=== PATIENT | female | born 1965 | race Caucasian/White ===

== ENCOUNTER → 2016-10-03 | Outpatient (CLI) | payer OTHER ==
[~2016-10-03] MED LIST: ALBUAER19 INH; BUPRTAB51 PO; FLUT0.15 NAE; PANT40TA PO
[2016-10-03 14:50] LABS: URINE APPEARANCE CLEAR (CLEAR); URINE BILIRUBIN NEG (NEG); URINE COLOR YELLOW; URINE NITRITE NEG (NEG); URINE SPECIFIC GRAVITY 1.011 (1.000-1.030); UROBILINOGEN NEG (NEG)
[2016-10-03 14:59] LABS: REVIEW REQ? NO
[2016-10-03 15:00] LABS: MANUAL MICROSCOPIC REQUIRED? NO
== END | disposition home or self-care (01) ==
LOC: C.RAD1850 13:03
PROVIDERS: ATTEND Obstetrics & Gynecology
DX: R39.9 Unspecified symptoms and signs involving the genitourinary system (principal)

== ENCOUNTER → 2016-12-08 | Outpatient (CLI) | payer OTHER | END | disposition home or self-care (01) | LOC: C.LAB1850 14:58 | PROVIDERS: ATTEND Psychiatry & Neurology Psychiatry | DX: F33.2 Major depressive disorder, recurrent severe without psychotic features (principal) ==

== ENCOUNTER → 2016-12-25 | Outpatient (CLI) | payer OTHER ==
[2016-12-25 14:53] LABS: MEAN CELL VOLUME 93.2 fL (80-100); MEAN CORPUSCULAR HEMOGLOBIN 31.8 pg (25-34); MEAN CORPUSCULAR HGB CONC 34.1 g/dl (32-36); MEAN PLATELET VOLUME 9.4 fL (7.4-10.4); PLATELET COUNT 276 K/uL (130-400); WHITE BLOOD COUNT 7.78 K/uL (4.8-10.8)
== END | disposition home or self-care (01) ==
LOC: C.LAB1850 13:35
PROVIDERS: ATTEND Obstetrics & Gynecology
DX: N92.0 Excessive and frequent menstruation with regular cycle (principal)

== ENCOUNTER → 2017-04-24 | Outpatient (CLI) | payer OTHER ==
--- NOTE | 2017-04-24 09:54 | DIAGNOSTIC IMAGING REPORT ---
BILIARY ULTRASOUND CLINICAL HISTORY: GALLBLADDER POLYP COMPARISON STUDY: 04/23/2015 FINDINGS: The pancreas appears sonographically normal. The liver appears sonographically normal. There is no ductal dilatation. The common bile duct measures 3 mm. There is no right-sided hydronephrosis. The gallbladder appears sonographically normal. IMPRESSION: Normal biliary ultrasound. No gallbladder polyps are delineated. Electronically signed by: Cornelio Hawthorne M.D. 04/24/2017 9:52 AM Dictated Date/Time: 04/24/2017 9:51 AM
== END | disposition home or self-care (01) ==
LOC: C.ULTRBC 09:12
PROVIDERS: ATTEND Surgery
DX: K82.4 Cholesterolosis of gallbladder (principal)

== ENCOUNTER → 2017-12-03 | Outpatient (CLI) | payer OTHER ==
--- NOTE | 2017-12-03 15:22 | DIAGNOSTIC IMAGING REPORT ---
LUMBAR SPINE 5 VIEWS CLINICAL HISTORY: Spondylolisthesis. FINDINGS: 5 views of the lumbar spine are obtained. No prior studies are available for comparison at the time of dictation. The skeletal structures are well mineralized. There is no radiographic evidence of fracture or malalignment. Vertebral body height and alignment are maintained. The transverse and spinous processes are intact. There is a left-sided pars defect at L5, and also possibly a right-sided pars defect. No anterolisthesis is seen at L5-S1. The intervertebral disc spaces are well-maintained. The visualized bony pelvis appears intact. There is a nonobstructed abdominal bowel gas pattern. IMPRESSION: 1. No acute bony abnormalities identified involving the lumbar spine. 2. There is a left-sided pars defect at L5, and also possibly a right-sided pars defect at this level. There is no significant anterolisthesis at L5-S1. Electronically signed by: Drkae Joiner M.D. 12/03/2017 3:20 PM Dictated Date/Time: 12/03/2017 3:17 PM
== END | disposition home or self-care (01) ==
LOC: C.RAD1850 14:51
PROVIDERS: ATTEND Internal Medicine
DX: M43.10 Spondylolisthesis, site unspecified (principal)

== ENCOUNTER → 2017-12-03 | Outpatient (CLI) | payer OTHER ==
--- NOTE | 2017-12-04 14:32 | MAMMOGRAPHY REPORT ---
BILATERAL DIGITAL SCREENING MAMMOGRAM TOMOSYNTHESIS WITH CAD: 12/03/2017 CLINICAL HISTORY: Routine screening. Patient has no complaints. TECHNIQUE: Breast tomosynthesis in addition to standard 2D mammography was performed. Current study w as also evaluated with a Computer Aided Detection (CAD) system. COMPARISON: Comparison is made to exams dated: 02/27/2016 mammogram, 04/27/2012 mammogram, 04/23/2012 mammogram, 01/29/2010 mammogram - [facility], and 07/29/2007. BREAST COMPOSITION: The tissue of both breasts is heterogeneously dense, which may obscure small mass es. FINDINGS: No suspicious masses, calcifications, or areas of architectural distortion are noted in either breast . There has been no significant interval change compared to prior exams. IMPRESSION: ACR BI-RADS CATEGORY 1: NEGATIVE There is no mammographic evidence of malignancy. A 1 year screening mammogram is recommended.( [id number]) The patient will receive written notification of the results. Some breast cancers are not detected with mammography. A negative mammographic report should not henrietta y biopsy if a clinically suggestive mass is present. Nette Sanchez M.D. ah/:12/03/2017 14:45:22 Crusher Assembler: RT Yaniv(Stephanie)(Anne)(BD), [facility] letter sent: Normal 1/2 BI-RADS Code: ACR BI-RADS Category 1: Negative
== END | disposition home or self-care (01) ==
LOC: C.MAMM 14:09
PROVIDERS: ATTEND Obstetrics & Gynecology
DX: Z12.31 Encounter for screening mammogram for malignant neoplasm of breast (principal)